=== PATIENT | male | born 2000 | race American Indian/Alaskan Native ===

== ENCOUNTER 2022-05-15 09:42 | Emergency (ER) | payer SELFPAY ==
[2022-05-15 10:01] VITALS: BP 129/70
[2022-05-15] MEDS ORDERED: ONDANSETRON 4 MG/2 ML INJ IV ONE (10:02)
[2022-05-15] MEDS ORDERED: SODIUM CHLORIDE 0.9% 1000 ML 1,000 ML IV ONE (10:02)
--- NOTE | 2022-05-15 10:03 | Emergency Department Report ---
Stated Complaint: NAUSEA/SORE THROAT - HPI History of Present Illness: 22-year-old male with no significant past medical history reports to the ER with complaints of nausea and vomiting for 2 days after eating some pizza from a restaurant. Patient reports anytime she tried to eat or drink he vomits. Patient reports abdominal discomfort and cramping since after eating a pizza. Patient reports no other acute signs or symptoms at this time. - ROS Review of Systems: Nausea vomiting no diarrhea Abdominal cramping No other acute signs or symptoms reported - Exam Physical Exam: Patient is alert and oriented x4 Mild labored breathing Patient is ambulatory no assistance Skin is dry and intact Patient in no acute distress. MSE screening note: Focused history and physical exam performed. Due to findings the following was ordered: MSE complete. Orders to be placed. Patient to be seen by another provider in the back. Triage complete. ED Disposition for MSE Condition: Stable
== END 2022-05-15 11:00 | disposition left against medical advice (07) ==
LOC: ED 09:42
DX: R11.0 Nausea (principal); J02.9 Acute pharyngitis, unspecified; Z53.21 Procedure and treatment not carried out due to patient leaving prior to being seen by health care provider